=== PATIENT | male | born 1995 | race Caucasian/White ===

== ENCOUNTER 2018-05-21 02:58 | Emergency (ER) | payer BC, OTHER ==
[~2018-05-21] VITALS: Ht 177.8 cm; Wt 81.8 kg
[~2018-05-21 02:58] MED LIST: CELE20TA PO; NICO21PAT TD; TRAZO50TA PO
[2018-05-21] MEDS ORDERED: IBUPOTC PO (03:04)
[2018-05-21 05:00] LABS: INFLUENZA A AMPLIFICATION POSITIVE (NEGATIVE); INFLUENZA B AMPLIFICATION NEGATIVE (NEGATIVE)
[2018-05-21] MEDS ORDERED: NS 1,000 ML IV ONE (05:15)
[2018-05-21] MEDS ORDERED: REGL10TA6 PO (05:26)
[2018-05-21] MEDS ORDERED: OSEL75CA PO (05:27)
[2018-05-21] MEDS ORDERED: KETOROLAC 60 MG/2 ML VIAL (J1885) IM ONE (05:30)
[2018-05-21] MEDS ORDERED: ONDANSETRON 4MG/2ML VIAL (J2405) IV ONE (05:30)
[2018-05-21] MEDS ORDERED: ACETAMINOPHEN 325 MG TAB PO ONE (05:30)
[2018-05-21 06:30] VITALS: BP 106/52
== END 2018-05-21 06:50 | disposition home or self-care (01) ==
LOC: M ED 02:58
DX: B34.9 Viral infection, unspecified (principal); J09.X3 Influenza due to identified novel influenza A virus with gastrointestinal manifestations; F17.200 Nicotine dependence, unspecified, uncomplicated; Z88.1 Allergy status to other antibiotic agents; Z88.2 Allergy status to sulfonamides
CPT/HCPCS: 87502; 96372; 96374; 99284; J1885; J2405

== ENCOUNTER 2018-11-12 23:02 | Emergency (ER) | payer BC, OTHER ==
[~2018-11-12] VITALS: Ht 177.8 cm; Wt 90.9 kg
[~2018-11-12 23:02] MED LIST changes: +IBUPOTC PO; +OSEL75CA PO; +REGL10TA6 PO; +TRAZ1TAB10 PO; -TRAZO50TA PO
[2018-11-12 23:03] VITALS: BP 141/94
[2018-11-13] MEDS ORDERED: ACETAMINOPHEN 325 MG TAB PO ONE
--- NOTE | 2018-11-13 00:41 | REPVR ---
EXAM: CT Head Without Contrast EXAM DATE/TIME: 11/13/2018 12:20 AM CLINICAL HISTORY: 23 years old, male; Other: Blurry vision; Additional info: Fall, loc, blurry vision TECHNIQUE: Imaging protocol: Computed tomography images of the head without contrast. Radiation optimization: All CT scans at this facility use at least one of these dose optimization techniques: automated exposure control; mA and/or kV adjustment per patient size (includes targeted exams where dose is matched to clinical indication); or iterative reconstruction. COMPARISON: No relevant prior studies available. FINDINGS: Brain: Streak artifact partially limits evaluation of the skull base and posterior fossa. No acute intracranial hemorrhage or mass effect as visualized. No discrete geographic area of hypoattenuation to suggest large vessel territorial infarct identified at this time. Ventricles: No ventriculomegaly. Bones/joints: No acute fracture. Sinuses: No fluid levels. Mastoid air cells: No mastoid effusion. Soft tissues: Unremarkable. IMPRESSION: No acute intracranial abnormality as visualized. Electronically signed by: Augustine Jay On 11/13/2018 00:40:57 AM
[2018-11-13] MEDS ORDERED: IBUPROFEN 600 MG TAB PO ONE (01:00)
== END 2018-11-13 01:03 | disposition home or self-care (01) ==
LOC: M ED 23:02
DX: S00.01XA Abrasion of scalp, initial encounter (principal); S50.312A Abrasion of left elbow, initial encounter; V00.138A Other skateboard accident, initial encounter; Y92.410 Unspecified street and highway as the place of occurrence of the external cause; Z88.1 Allergy status to other antibiotic agents; Z88.2 Allergy status to sulfonamides; F17.210 Nicotine dependence, cigarettes, uncomplicated

== ENCOUNTER 2018-11-19 22:33 | Emergency (ER) | payer BC, OTHER ==
[~2018-11-19] VITALS: Ht 177.8 cm; Wt 96.0 kg
[2018-11-20] MEDS ORDERED: KETO10TAB PO (00:23)
[2018-11-20] MEDS ORDERED: CYCL5TAB PO (00:23)
[2018-11-20] MEDS ORDERED: KETOROLAC TROMETHAMINE 10 MG TAB PO ONE (00:30)
[2018-11-20] MEDS ORDERED: CYCLOBENZAPRINE 10 MG TAB PO ONE (00:30)
[2018-11-20 00:32] VITALS: BP 118/74
== END 2018-11-20 00:33 | disposition home or self-care (01) ==
LOC: M ED 22:33
DX: S33.5XXA Sprain of ligaments of lumbar spine, initial encounter (principal); W18.39XA Other fall on same level, initial encounter; Y92.89 Other specified places as the place of occurrence of the external cause; F33.9 Major depressive disorder, recurrent, unspecified; Z88.1 Allergy status to other antibiotic agents; Z88.2 Allergy status to sulfonamides; F17.210 Nicotine dependence, cigarettes, uncomplicated

== ENCOUNTER 2019-05-26 02:42 | Emergency (ER) | payer BC, OTHER ==
[~2019-05-26] VITALS: Ht 177.8 cm; Wt 90.9 kg
[~2019-05-26 02:42] MED LIST changes: +CYCL5TAB PO; +KETO10TAB PO
[2019-05-26] MEDS ORDERED: ONDANSETRON 4MG/2ML VIAL (J2405) IV ONE (03:30)
[2019-05-26 03:34] LABS: BASO % 0.4 % (0.0-1.0); EOS % 0.4 % (0.0-3.0); HEMATOCRIT 54.2 % (42.0-52.0); HEMOGLOBIN 18.5 g/dl (13.5-17.5); LYMPH # 0.5 10^3/uL (1.5-5.0); LYMPH % 5.1 % (24.0-44.0); MEAN CORPUSCULAR HEMOGLOBIN 28.7 pg (27.0-33.0); MEAN CORPUSCULAR HGB CONC 34.1 g/dl (32.0-36.5); MEAN CORPUSCULAR VOLUME 84.2 fl (80.0-96.0); MONO # 0.8 10^3/uL (0.0-0.8); MONO % 7.8 % (0.0-5.0); NEUTROPHILS # 8.3 10^3/uL (1.5-8.5); PLATELET COUNT, AUTOMATED 205 10^3/uL (150-450); RED BLOOD COUNT 6.44 10^6/uL (4.30-6.10); WHITE BLOOD COUNT 9.6 10^3/uL (4.0-10.0)
[2019-05-26 03:53] LABS: BLOOD UREA NITROGEN 14 MG/DL (7-18); CALCIUM LEVEL 8.7 MG/DL (8.5-10.1); CARBON DIOXIDE LEVEL 25 MEQ/L (21-32); CHLORIDE LEVEL 110 MEQ/L (98-107); GLOMERULAR FILTRATION RATE > 60.0 (>60); GLUCOSE, FASTING 123 MG/DL (70-100); SODIUM LEVEL 143 MEQ/L (136-145)
[2019-05-26 04:11] LABS: INFLUENZA A AMPLIFICATION NEGATIVE (NEGATIVE); INFLUENZA B AMPLIFICATION NEGATIVE (NEGATIVE)
[2019-05-26] MEDS ORDERED: NS 1,000 ML IV ONE ×3 (04:30→06:45)
[2019-05-26] MEDS ORDERED: METOCLOPRAMIDE INJ 10MG/2ML VIAL (J2765) IV ONE (08:30)
[2019-05-26] MEDS ORDERED: ONDA4TAB6 PO (09:45)
[2019-05-26 09:50] VITALS: BP 105/51
== END 2019-05-26 10:00 | disposition home or self-care (01) ==
LOC: M ED 02:42
DX: E86.0 Dehydration (principal); R11.2 Nausea with vomiting, unspecified; F32.9 Major depressive disorder, single episode, unspecified; Z88.2 Allergy status to sulfonamides; Z88.8 Allergy status to other drugs, medicaments and biological substances
CPT/HCPCS: 80048; 85025; 87502; 96361; 96374; 96375; 99284; J2405; J2765

== ENCOUNTER → 2024-10-04 | Day surgery (SDC) | payer BC, OTHER ==
[~2024-10-04] VITALS: Ht 175.3 cm; Wt 107.2 kg
[~2024-10-04] MED LIST changes: +AUGM500T34 PO; +CEFD1CAP9 PO; -CYCL5TAB PO; +CYCL5TAB4 PO; +HOME MED LIST COMPLETE! XX SCH; +ISOVUE-370 76% 100 ML VIAL As Ordered ONE; +KETOROLAC 30 MG/ML 1 ML VIAL As Ordered ONE; +LIDOCAINE 2% 100 MG/5 ML SDV (FOR ANES.) As Ordered ONE; +MIDAZOLAM INJ 2 MG/2 ML VIAL As Ordered ONE; +MORPHINE 2 MG/ML 1 ML VIAL IV PRN; +ONDA-282 PO; +ONDANSETRON 4MG 2ML VIAL As Ordered ONE; +ONDANSETRON 4MG 2ML VIAL IV PRN; +OXYC1TAB23 PO; +ROCURONIUM BROMIDE 50MG/5ML VIAL As Ordered ONE; +SUGAMMADEX SODIUM 200 MG/2 ML VIAL As Ordered ONE; +dexAMETHasone 4 MG/ML 1 ML VIAL As Ordered ONE
[2024-10-04 09:42] LABS: BASO # 0.0 10^3/uL (0.0-0.2); BASO % 0.7 % (0.0-1.0); EOS # 0.2 10^3/uL (0.0-0.5); EOS % 2.7 % (0.0-3.0); LYMPH # 1.2 10^3/uL (1.5-5.0); LYMPH % 20.8 % (24.0-44.0); MONO # 0.6 10^3/uL (0.0-0.8); MONO % 10.0 % (2.0-8.0); NEUTROPHILS # 3.9 10^3/uL (1.5-8.5); NEUTROPHILS % 65.6 % (36.0-66.0); PLATELET COUNT, AUTOMATED 261 10^3/uL (150-450)
[2024-10-04 09:57] LABS: ALT/SGPT 25 U/L (7.0-40); AST/SGOT 19 U/L (<34)
[2024-10-04] MEDS: KETOROLAC 30 MG/ML 1 ML VIAL IV ONE (10:10)
[2024-10-04] MEDS: NS (Normal Saline) 0.9% 1,000 ML IV ONE (10:10)
[2024-10-04] MEDS: PIPERACILLIN/TAZOBACTAM SOD 3.375 GM in DEXTROSE 5% (D5W) ADV/MINI-BAG 50 ML IV ONE (12:34)
[2024-10-04] MEDS: ZOSYN 3.375GM VIAL As Ordered ONE (22:43)
[2024-10-04] MEDS: LIDOCAINE 1% SDV 30 ML VIAL As Ordered ONE (23:09)
[2024-10-04] MEDS: LEVALBUTEROL 1.25 MG 0.5ML CONCENTRATE NEB INH ONE (23:38)
[2024-10-04 23:51] VITALS: BP 130/82; TEMP 97.1; O2SAT 96
== END | disposition home or self-care (01) ==
LOC: M ED 06:45 → M SDC 14:52
PROVIDERS: ATTEND Surgery
DX: K35.890 Other acute appendicitis without perforation or gangrene (principal); F17.200 Nicotine dependence, unspecified, uncomplicated; Z88.2 Allergy status to sulfonamides
CPT/HCPCS: 44970; 80047; 80076; 85025; 88304; 96365; 96375; 99285; J0665; J1100; J1885; J2250; J2405; J2543; J3010; Q9967